=== PATIENT | male | born 1965 | race African-American/Black ===

== ENCOUNTER 2017-05-29 05:53 | Outpatient (CLI) | payer OTHER ==
[~2017-05-29] VITALS: Ht 185.4 cm; Wt 118.2 kg
--- NOTE | ~2017-05-29 | HEMODYNAMI ---
PATIENT:CESAR WILLARD MEDICAL RECORD: [id number] : 69 LOCATION:[facility] ADMISSION DATE: 05/29/17 Generatedon:05/29/20178:34 Patient name: CESAR WILLARD Patient #: [id number] SSN: : 1965 Date of study: 05/29/2017 Page: Of Hemodynamic Procedure Report Patient Data Patient Demographics Procedure consent was obtained First Name: CESAR Gender: Male Last Name: MONTSE : 1965 Patient #: [id number] Age: 51 year(s) Race: Black Additional ID: [id number] Contact details Address: [address] [place] [address] State: [place] City: [facility] Zip code: [address] Past Medical History Allergies Allergen Reaction Date Comments Reported Penicillins 05/29/2017 Admission Admission Data Admission Date: 05/29/2017 Admission Time: 5:53 Lab Results Lab Result Date: 05/29/2017 Lab Result Time: 0:00 Biochemistry Name Units Result Min Max Creatinine mg/dl 1.2 --(---*)-- 0.6 1.3 CBC Name Units Result Min Max Hemoglobin g/dl 15.9 --(--*-)-- 13.5 17.5 Procedure Procedure Types Cath Procedure Diagnostic Procedure [facility] w/Coronaries PCI Procedure Coronary Stent Initial Miscellaneous Procedures Moderate Sedation up to 30 minutes Procedure Description Procedure Date Procedure Date: 05/29/2017 Procedure Start Time: 8:06 Procedure End Time: 8:33 Procedure Staff Name Function Thomas Day MD Performing Physician Jb Villegas RN Nurse Marie Blancas RT Monitor Kervin Jesus RT Scrub Procedure Data Cath Procedure Fluoroscopy Diagnostic fluoroscopy Total fluoroscopy dose: dose: 1062 mGy 1062 mGy Contrast Material Contrast Material Type Amount (ml) Isovue 300 140 Entry Location Entry Primary Successful Side Size Upsize Upsize Entry Closure Lisa ccessful Closure Location (Fr) 1 (Fr) 2 (Fr) Remarks Device Remarks Radial Right 6 Fr Mechanical artery Short Compression Estimated blood loss: 10 ml Diagnostic catheters Device Type Used For End Catheter Placement Terumo 5Fr Grayson 110cm LV Angiography catheter Terumo 5Fr Grayson 110cm Left Coronary catheter Angiography Terumo 5Fr Grayson 110cm Right Coronary catheter Angiography Procedure Complications No complications Procedure Medications Medication Administration Route Dosage Oxygen NC 2 l/min Heparin Flush Bag added to field 2 bags (1000units/500ml NS) 0.9% NaCl I.V. 100 ml/hr Radial Cocktail added to field 1 syringe (Verapomil 2mg/Nitro 400mcg/Heparin 1500units) Fentanyl I.V. 50 mcg Versed I.V. 1 mg Fentanyl I.V. 50 mcg Versed I.V. 1 mg Fentanyl I.V. 50 mcg Fentanyl I.V. 50 mcg Heparin Bolus I.V. 90524 units Radial Cocktail added to field 1 syringe (Verapomil 2mg/Nitro 400mcg/Heparin 1500units) Nitroglycerin IC/IA I.C. 100 mcg Versed I.V. 1 mg Hemodynamics Rest HGB: 15.9 (g/dl) Heart Rate: 79 (bpm) Pressure Samples Time Site Value (mmHg) Purpose Heart Use Rate(bpm) 8:08 LV 143/-17,2 EDP 84 8:08 LV 141/-14,1 EDP 84 8:09 AO 129/80(101) Pullback 80 8:09 LV 142/-11,2 Pullback 80 Gradients Valve Time Site 1 Site 2 Mean SEP/DFP Peak To Heart Use (mmHg) (sec/min) Peak Rate (mmHg) (bpm) Aortic 8:09 LV AO 24 7 13 80 142/-11,2 129/80(101) Calculations Valve P-P Mean Valve Index Valve Source Name Gradient Area Flow (cm2) Aortic 13 24 13 24 Snapshots Pre Cath Intra NCS Post Cath Vital Signs Time Heart Resp SPO2 etCO2 WT3anub NIBP (mmHg) Rhythm Pain Sedation Rate (ipm) (%) (mmHg) (mmHg) Status Level (bpm) 7:51:24 83 18 100 0 0 157/95(133) NSR 0 (11) 10(A) , No pain 7:55:38 76 18 100 0 0 147/89(115) NSR 0 (11) 10(A) , No pain 7:59:50 83 19 100 0 0 160/96(118) NSR 0 (11) 10(A) , No pain 8:04:02 70 17 97 0 0 130/80(99) NSR 0 (11) 10(A) , No pain 8:08:18 83 17 96 0 0 112/65(106) NSR 0 (11) 10(A) , No pain 8:13:09 79 17 96 0 0 117/75(101) NSR 0 (11) 9(A) , No pain 8:17:17 77 16 98 0 0 118/70(93) NSR 0 (11) 9(A) , No pain 8:21:29 80 17 98 0 0 122/70(104) NSR 0 (11) 9(A) , No pain 8:25:36 79 16 97 0 0 130/77(103) NSR 0 (11) 9(A) , No pain 8:29:40 85 16 96 0 0 142/95(113) NSR 0 (11) 9(A) , No pain Medications Time Medication Route Dose Verified Delivered Reason Notes Effectiveness by by 7:47:28 Oxygen NC 2 l/min Jb Muhammad Per physician Bakari Villegas RN RN 7:47:37 Heparin Flush added 2 bags Jb Jb used for Bag to Bakari Villegas telesales agent (1000units/500ml field RN NS) 7:47:47 0.9% NaCl I.V. 100 Jb Jb Per physician ml/hr Bakari Villegas RN RN 7:47:56 Radial Cocktail added 1 Jb Jb used for (Verapomil to syringe Bakari Villegas telesales agent 2mg/Nitro field RN 400mcg/Heparin 1500units) 7:57:28 Fentanyl I.V. 50 mcg Jb Jb for sedation Bakari Villegas RN RN 7:57:35 Versed I.V. 1 mg Jb Jb for sedation Bakari Villegas RN RN 8:00:47 Fentanyl I.V. 50 mcg Jb Jb for sedation Bakari Villegas RN RN 8:00:50 Versed I.V. 1 mg Jb Jb for sedation Bakari Villegas RN RN 8:03:39 Fentanyl I.V. 50 mcg Jb Jb for sedation Bakari Villegas RN RN 8:06:25 Radial Cocktail added 1 Jb Thomas for (Verapomil to syringe Bakari Day MD vasodilation 2mg/Nitro field RN 400mcg/Heparin 1500units) 8:06:32 Fentanyl I.V. 50 mcg Jb Muhammad for sedation Bakari Villegas RN RN 8:18:28 Heparin Bolus I.V. 00567 Thomas Jb for units Shay Villegas RN anticoagulation 8:21:51 Versed I.V. 1 mg Jb Muhammad for sedation Bakari Villegas RN RN 8:26:33 Nitroglycerin I.C. 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 Start room use. 7:33:15 Time tracking: Regular hours 7:33:18 Plan of Care:Hemodynamics will remain stable., Cardiac rhythm will remain stable., Comfort level will be maintained., Respiratory function will remain adequate., Patient/ family verbilizes understanding of procedure., Procedure tolerated without complication., Recovers from procedure without complications.. 7:38:27 Patient received from Pre/Post Procedure Room to [facility] 1 Alert and oriented. Tansferred to table in Supine position. 7:38:28 Warm blankets applied, and jb hugger turned on for patient comfort. 7:38:29 Correct patient and procedure confirmed by team. 7:38:31 Signed procedure consent form obtained from patient. 7:38:32 ECG and BP/O2 sat monitors applied to patient. 7:38:33 Full Disclosure recording started 7:47:28 Oxygen 2 l/min NC was administered by Jb Villegas RN; Per physician; 7:47:37 Heparin Flush Bag (1000units/500ml NS) 2 bags added to field was administered by Jb Villegas RN; used for procedure; 7:47:47 0.9% NaCl 100 ml/hr I.V. was administered by Jb Villegas RN; Per physician; 7:47:56 Radial Cocktail (Verapomil 2mg/Nitro 400mcg/Heparin 1500units) 1 syringe added to field was administered by Jb Villegas RN; used for procedure; 7:49:08 Vital chart was started 7:52:03 Baseline sample Acquired. 7:52:06 Rhythm: sinus rhythm 7:53:10 H&P Date Dictated: 05/26/2017 Within 30 days and on chart., H&P Addendum completed by physician on day of procedure. (MUST COMPLETE FOR ALL OUTPATIENTS). 7:53:12 Pre-procedure instructions explained to patient. 7:53:12 Pre-op teaching completed and patient verbalized understanding. 7:53:13 Family in waiting room. 7:53:15 Patient NPO since Midnight. 7:53:21 Patient allergic to Penicillins 7:53:25 Is the patient allergic to Iodine/contrast media? No. 7:53:27 Is patient on blood thinner?No 7:53:31 Patient diabetic? No. 7:53:36 Previous problem with sedation/anesthesia? No ? 7:53:37 Snore? Yes 7:53:39 Sleep apnea? Yes 7:53:41 Deviated septum? No 7:53:42 Opens mouth fully? Yes 7:53:42 Sticks out tongue? Yes 7:53:45 Airway obstruction? No ? 7:53:47 Dentures? No ? 7:53:50 Pre procedure: right dorsailis pedis pulse 2+ Normal; easily identifiable; not easily obliterated 7:53:52 Modified Sam's test Ulnar < 7 seconds 7:53:54 Patient pain scale 0/10 ?. 7:53:59 IV patent on arrival in left hand with 0.9% NaCl at [facility]. 7:54:25 Lab Result : Creatinine 1.2 mg/dl 7:54:25 Lab Result : Hemoglobin 15.9 g/dl 7:54:28 Lab results completed and on chart. 7:54:35 Right Radial & Right Groin area was prepped with chlora-prep and draped in sterile fashion 7:54:35 Alarms reviewed by R. N. 7:54:36 Sharps counted by scrub and verified by R.N. 7:54:38 Use device set Radial Dx 7:54:39 Acist Syringe opened to sterile field. 7:54:40 Medline Cath Pack opened to sterile field. 7:54:40 Bag Decanter opened to sterile field. 7:54:41 Terumo 6Fr Slender Glidesheath opened to sterile field. 7:54:41 St Visnhu 260cm J .035 wire opened to sterile field. 7:54:42 Acist Hand Control opened to sterile field. 7:54:42 Acist Manifold opened to sterile field. 7:54:43 Tegaderm 4 x 4 opened to sterile field. 7:54:43 MBrace Wrist Support opened to sterile field. 7:57:04 Final Timeout: patient, procedure, and site verified with staff and physician. All members of the team are in agreement. 7:57:07 Right Radial site verified by team. 7:57:10 Physical assessment completed. ASA score P 2 - A patient with mild systemic disease as per Thomas Day MD. 7:57:13 Sedation plan: IV Moderate Sedation Versed, Fentanyl 7:57:28 Fentanyl 50 mcg I.V. was administered by Jb Villegas RN; for sedation; 7:57:35 Versed 1 mg I.V. was administered by Jb Villegas RN; for sedation; 8:00:47 Fentanyl 50 mcg I.V. was administered by Jb Villegas RN; for sedation; 8:00:50 Versed 1 mg I.V. was administered by Jb Villegas RN; for sedation; 8:03:39 Fentanyl 50 mcg I.V. was administered by Jb Villegas RN; for sedation; 8:06:05 Procedure started. 8:06:13 Local anesthetic to right radial artery with Lidocaine 2% by Thomas Day MD.INITIAL ACCESS ONLY 8:06:21 A 6 Fr Short sheath was inserted into the Right Radial artery 8:06:25 Radial Cocktail (Verapomil 2mg/Nitro 400mcg/Heparin 1500units) 1 syringe added to field was administered by Thomas Day MD; for vasodilation; 8:06:32 Fentanyl 50 mcg I.V. was administered by Jb Villegas RN; for sedation; 8:06:41 A Terumo 5Fr Grayson 110cm catheter was advanced over the wire and used for LV Angiography. 8:08:01 LV gram done using EUCEDA 8:08:05 Injector settings: Ml/sec: 5, Volume: 15, 8:08:07 LV hemodynamics recorded. 8:09:07 EF : 55 % 8:10:10 A Terumo 5Fr Grayson 110cm catheter was advanced over the wire and used for Left Coronary Angiography. 8:13:41 A Terumo 5Fr Grayson 110cm catheter was advanced over the wire and used for Right Coronary Angiography. 8:13:42 Catheter removed. 8:14:05 Jd BasixCompak Inflation Kit opened to sterile field. 8:14:06 Montiel BMW [place] 2 J-tip 300cm 0.014 guide wir opened to sterile field. 8:14:07 High Pressure Extension Tubing (Shay) opened to sterile field. 8:14:15 Cordis 6FR XBLAD 3.5 guide catheter opened to sterile field. 8:16:30 6 Fr XBLAD 3.5 guide catheter was inserted over the wire 8:18:28 Heparin Bolus 46832 units I.V. was administered by Jb Villegas RN; for anticoagulation; 8:20:15 BMW wire advanced. 8:21:51 Versed 1 mg I.V. was administered by Jb Villegas RN; for sedation; 8:23:36 Inflation Number: 1 A Medtronic Integrity 3.5 X 18 stent was prepped and advanced across the Mid LAD. The stent was deployed at 12 DOE for 0:19 (min:sec). 8:25:05 Stent catheter was removed intact over wire. 8:26:33 Nitroglycerin IC/IA 100 mcg I.C. was administered by Thomas Day MD; for vasodilation; 8:27:25 Wire removed. 8:27:26 Guide catheter removed. 8:27:44 Sheath removed intact; hemostasis achieved with Mechanical Compression to the Right Radial artery. 8:27:47 Procedure ended.(Physican Out) 8:28:04 Fluoroscopy dose: 1062 mGy 8:28:04 Flurop Dose total: 1062 8:28:29 Contrast amount:Isovue 300 140ml. 8:28:41 Sharps counted by scrub and verified by R.N. 8:28:43 TR band inflated with 12cc of air. 8:28:43 Insertion/operative site no bleeding no hematoma. 8:29:00 Post right radial artery:stable, clean and dry 8:29:02 Post Procedure Pulses reassessed and unchanged 8:29:05 Post-procedure physical assessment completed. ASA score P 2 - A patient with mild systemic disease as per Thomas Day MD. 8:30:11 Post procedure rhythm: sinus rhythm 8:30:15 Estimated blood loss: 10 ml 8:30:16 Post procedure instruction explained to patient.Patient verbalizes understanding. 8:30:17 Patient needs reinforcement of post procedure teaching. 8:30:27 Procedure type changed to Cath procedure, Diagnostic procedure, LHC, LHC w/Coronaries, PCI procedure, Coronary Stent Initial, Miscellaneous Procedures, Moderate Sedation up to 30 minutes 8:30:33 Procedure Complication : No complications 8:30:35 See physician's report for complete and final results. 8:31:13 Terumo TR Band Standard opened to sterile field. 8:31:47 Cook 21G 4cm Radial Needle opened to sterile field. 8:32:08 Procedure and supply charges have been captured, reviewed, submitted and are correct. 8:33:25 Vital chart was stopped 8:33:27 Report given to Pre/Post Procedure Room. 8:33:30 Patient transfered to Pre/Post Procedure Room with Stretcher. 8:33:38 Procedure ended. 8:33:38 Full Disclosure recording stopped 8:33:41 End room use (Document Last) Intervention Summary Intervention Notes Time ActionType Lesion and Equipment Action# Pressure Duration Attributes Used 8:23:36 Place stent Mid LAD Medtronic 1 12 00:19 Integrity 3.5 X 18 stent Device Usage Item Name Manufacture Quantity Catalog Hospital Part Current Minimal Lot# / Number Charge Number Stock Stock Serial# Code Acist Acist 1 70183 137870 468618 169261 20 Syringe Medical Systems Inc Medline Cardinal 1 [id number] 757115 78557 458879 5 Cath Pack Health Bag Microtek 1 2002S 973171 09513 969246 5 [email or web address] [employer] Inc. Terumo 6Fr Terumo 1 [id number] 740993 218076 760501 [address] Vishnu 1 212725 966179 216073 554215 30 260cm J .035 wire Acist Hand Acist 1 33388 872888 449449 516256 5 Control Medical Systems Inc Acist Acist 1 17183 196045 051251 509841 5 Manifold Medical Systems Inc Tegaderm 4 3M 1 1626W 637125 206389 639875 5 x 4 MBrace Advanced 1 140-0250-00 408359 68515 627582 5 Wrist Vascular Support Dynamics Terumo 5Fr Terumo 1 40-6924 249948 516028 509599 5 Grayson 110cm catheter Merit Merit 1 [id number] 501696 842582 492569 15 BasixCompak Medical Inflation Kit Montiel BMW Montiel 1 [id number] 622508 068123 828032 5 [place] 2 Vascular J-tip 300cm 0.014 guide wir High Merit 1 [id number] 335367 28513 780203 10 Pressure Medical Extension Tubing (Day) Cordis 6FR Cardinal 1 [id number] 726845 703860 883551 10 XBLAD 3.5 Health guide catheter Medtronic Medtronic 1 [id number] 037647 367424 1 [id number] Integrity 3.5 X 18 stent Terumo TR Terumo 1 [id number] 614905 810656 791559 40 Band Standard Cook 21G Twenty Jeans 1 [id number] 207486 659717 942656 5 4cm Radial Needle Signature Audit [place] Stage Time Signature Unsigned Intra-Procedure 05/29/2017 Marie 8:34:47 AM Counts RT(R) Signatures Monitor : Marie Signature : Counts RT Date : Time : [place] [id number] [place] [address]
[2017-05-29] MEDS ORDERED: PRAVASTATIN SOD10 MG PO (06:20)
[2017-05-29] MEDS ORDERED: BENICAR HCT 20-1 TA1 PO (06:21)
[2017-05-29 06:22] VITALS: BP 141/87; Ht 185.4 cm; Wt 118.2 kg
[2017-05-29] MEDS ORDERED: VALTREX500 MG PO (06:22)
[2017-05-29 06:37] LABS: BASOPHILS 0.3 % (0-2); EOSINOPHILS 7.4 % (0-7); HEMATOCRIT 46.5 % (42.0-54.0); HEMOGLOBIN 15.9 g/dL (13.5-17.5); IMMATURE GRANULOCYTES 0.2 % (0-5); LYMPHOCYTES 37.2 % (15-50); MCH 28.5 pg (26.0-34.0); MCHC 34.2 g/dL (31.0-37.0); MCV 83.3 fL (80.0-100.0); MEAN PLATELET VOLUME 9.5 fL (7.4-10.4); MONOCYTES 7.2 % (2-11); NEUTROPHILS 47.7 % (40-80); PLATELET COUNT 214 10x3/uL (130-400); RBC 5.58 10x6/uL (4.20-6.10); RDW 13.4 % (11.5-14.5); WBC 8.8 10x3/uL (4.8-10.8)
[2017-05-29 06:48] LABS: ANION GAP 12.9 mmol/L (8-16); CALCIUM 9.1 mg/dL (8.5-10.1); CARBON DIOXIDE 28.6 mmol/L (21.0-32.0); CREATININE - SERUM 1.2 mg/dL (0.6-1.3); POTASSIUM - SERUM 3.5 mmol/L (3.5-5.1)
[2017-05-29] MEDS ORDERED: BAYER CHEWABLE81 MG PO (08:45)
[2017-05-29] MEDS ORDERED: BRILINTA90 MG PO (08:45)
--- NOTE | 2017-05-29 08:45 | NUR ---
0845 RECIEVED TO ROOM VIA STRETCHER FROM [employer] WITH TR BAND TO R/WRIST CDI NO BLEEDING NO HEMATOMA NOTED. BP 161/97, HR74, 02 SAT 100% ON 2 LITERS. CHEST PAIN IS DENIED. REPORTS OF ONE STENT TO THE LAD. PATIENT STARTED ON BRILINTA 90 MG BID.
--- NOTE | 2017-05-29 08:59 | NUR ---
PATIENT VOIDS 300 CC CLEAR YELLOW URINE TO COLLECTION
--- NOTE | 2017-05-29 09:30 | NUR ---
SANDWICH TRAY AND DRINK GIVEN. NO C/O NAUSEA OR CHEST PAIN. RIGHT WRIST TR BAND IN PLACE, NO BLEEDING OR HEMATOMA NOTED. VSS.
--- NOTE | 2017-05-29 09:45 | NUR ---
ROOM AIR, NO RESP DISTRESS NOTED. RIGHT WRIST TR BAND IN PLACE, NO BLEEDING OR HEMATOMA NOTED. NO C/O AT THIS TIME. FAMILY AT BEDSIDE, CALL LIGHT WITHIN REACH.
--- NOTE | 2017-05-29 10:10 | NUR ---
FAMILY AT SIDE WITH NEEDS DENIED TR BAND REMAINS TO R/WRIST NO BLEEDING NO HEMATOMA NOTED.
--- NOTE | 2017-05-29 10:47 | NUR ---
1045 PT DENIES ANY C/O. TR BAND TO RIGHT WRIST IS CDI, NO BLEEDING OR HEMATOMA NOTED. HAS LEÓN SANDWICH TRAY AND PO FLUIDS WITH NO C/O. FAMILY AT BEDSIDE. VSS, CALL LIGHT IN REACH.
--- NOTE | 2017-05-29 11:38 | NUR ---
1130 TR BAND DEFLATION BEGUN, 2 CC OF AIR REMOVED FROM BAND WITH NO BLEEDING OR HEMATOMA NOTED. PT HAS VOIDED 400 CC CLEAR YELLOW URINE IN URINAL. DENIES ANY C/O AT THIS TIME.
--- NOTE | 2017-05-29 12:20 | NUR ---
1215 PT DENIES ANY C/O. NO BLEEING OR HEMATOMA AT CATH SITE. SINUS RYTHM WITH RATE OF 68, DENIES ANY C/O CHEST DISCOMFORT.
--- NOTE | 2017-05-29 13:24 | NUR ---
1300 IV HAS BEEN DC'D WITH CATH INTACT, 2X2 AND TEGADERM TO CATH SITE ARE CDI, NO BLEEDING OR HEMATOMA NOTED. HAND WARM, BRISK CAP REFILL, PT DENIES ANY N/V DEFICIT. WRIST IMMOBILIZER IN PLACE. DC INSTRUCTIONS REVIEWED WITH PT AND FAMILY WHO VERBALIZE UNDERSTANDING. PT ESCORTED TO PRIVATE AUTO VIA WC BY STAFF WTIH FAMILY DRIVING HIM HOME.
== END 2017-05-29 13:00 | disposition home or self-care (01) ==
LOC: D.CATH 05:53
PROVIDERS: Internal Medicine Cardiovascular Disease
DX: I20.9 Angina pectoris, unspecified (principal); R94.30 Abnormal result of cardiovascular function study, unspecified; R07.9 Chest pain, unspecified; I10 Essential (primary) hypertension; Z01.812 Encounter for preprocedural laboratory examination